=== PATIENT | female | born 1980 | race Caucasian/White ===

== ENCOUNTER 2022-09-19 12:29 | Emergency (ER) | payer MEDICAID ==
[~2022-09-19] VITALS: Ht 157.5 cm; Wt 77.0 kg
[2022-09-19 14:23] VITALS: BP 107/64
[2022-09-19] MEDS ORDERED: SUMA50TA2 PO (15:40)
== END 2022-09-19 15:44 | disposition home or self-care (01) ==
LOC: ER 12:29
DX: G44.209 Tension-type headache, unspecified, not intractable (principal); Z90.710 Acquired absence of both cervix and uterus
CPT/HCPCS: 70450

== ENCOUNTER 2023-01-11 23:37 | Emergency (ER) | payer MEDICAID ==
[~2023-01-11] VITALS: Ht 157.5 cm; Wt 80.0 kg
[~2023-01-11 23:37] MED LIST: SUMA50TA2 PO
[2023-01-12 00:15] VITALS: PULSE 88; RESP 18; O2SAT 99
[2023-01-12 01:05] LABS: Basophils # (auto) 0.1 10 ^3/uL (0-0.2); Basophils % (auto) 0.7 % (0.0-2.0); Eosinophils # (auto) 0.1 10 ^3/uL (0-0.8); Eosinophils % (auto) 1.4 % (0.0-7.0); Hematocrit 38.7 % (36.0-46.0); Lymphocytes # (auto) 2.6 10 ^3/uL (0.4-5.4); Lymphocytes % (auto) 28.7 % (10.0-50.0); Mean Corpuscular Hemoglobin 30.1 pg (28.0-32.0); Mean Corpuscular Hgb Conc. 33.7 g/dL (32.0-36.0); Mean Corpuscular Volume 89.3 fL (80.0-100.0); Monocytes # (auto) 0.9 10 ^3/uL (0-1.3); Monocytes % (auto) 9.5 % (0.0-12.0); Neutrophils # (auto) 5.4 10 ^3/uL (1.6-8.6); Neutrophils % (auto) 59.7 % (37.0-80.0); Red Blood Cells 4.33 10^6/uL (4.0-5.20)
[2023-01-12 01:29] LABS: Albumin 3.7 g/dL (3.4-5.0); BUN/Creatinine Ratio 12.2 (10.0-20.0); Calcium 8.7 mg/dL (8.5-10.1)
[2023-01-12 01:31] LABS: Bilirubin, Total 0.2 mg/dL (0.2-1.0); Total Protein 6.9 g/dL (6.4-8.2)
[2023-01-12 01:34] LABS: Potassium 2.9 mmol/L (3.5-5.1)
[2023-01-12] MEDS ORDERED: KETOROLAC TROMETH 30 MG/ML 1ML VIAL IV ONE (01:45)
[2023-01-12] MEDS ORDERED: MORPHINE SULFATE 4 MG/ML SYR/VIAL IV ONE (01:45)
[2023-01-12] MEDS ORDERED: ONDANSETRON HCL 4 MG/2 ML VIAL IV ONE (01:45)
[2023-01-12 02:09] LABS: INR 0.96 (0.9-1.15); Partial Thromboplastin Time 27.4 SEC (24.5-34.5)
[2023-01-12 04:00] VITALS: BP 108/60; PULSE 86; RESP 19; TEMP 98.3; O2SAT 95
[2023-01-12] MEDS ORDERED: POTASSIUM EFFERVESENT TAB 25 MEQ GT ONE (04:00)
[2023-01-12] MEDS ORDERED: LACTATED RINGER'S 1,000 ML IV ONE (04:45)
== END 2023-01-12 06:40 | disposition home or self-care (01) ==
LOC: EDBD 23:37 → ER 23:37
DX: S06.0XAA Concussion with loss of consciousness status unknown, initial encounter (principal); R51.9 Headache, unspecified; E87.6 Hypokalemia; E86.0 Dehydration; F41.9 Anxiety disorder, unspecified; F32.9 Major depressive disorder, single episode, unspecified; Z90.710 Acquired absence of both cervix and uterus; W18.09XA Striking against other object with subsequent fall, initial encounter; Y93.89 Activity, other specified; Y92.89 Other specified places as the place of occurrence of the external cause; Y99.8 Other external cause status
CPT/HCPCS: 36415; 70450; 72125; 80053; 85025; 85610; 85730; 96361; 96374; 96375; 99285; J1885; J2270; J2405; J7030

== ENCOUNTER 2023-04-16 09:33 | Emergency (ER) | payer MEDICAID ==
[~2023-04-16] VITALS: Ht 157.5 cm; Wt 69.7 kg
[~2023-04-16 09:33] MED LIST changes: +ACET-1881 PO; +LEVO500T91 PO; +ONDA-144 PO; +PERCOT PO; +TAMS-35 PO
[2023-04-16 10:32] LABS: Basophils # (auto) 0 10 ^3/uL (0-0.2); Basophils % (auto) 0.5 % (0.0-2.0); Eosinophils # (auto) 0 10 ^3/uL (0-0.8); Eosinophils % (auto) 0.2 % (0.0-7.0); Hematocrit 40.9 % (36.0-46.0); Hemoglobin 13.6 g/dL (12.2-16.2); Lymphocytes # (auto) 1.8 10 ^3/uL (0.4-5.4); Lymphocytes % (auto) 24.3 % (10.0-50.0); Mean Corpuscular Hemoglobin 30.1 pg (28.0-32.0); Mean Corpuscular Hgb Conc. 33.2 g/dL (32.0-36.0); Mean Corpuscular Volume 90.7 fL (80.0-100.0); Monocytes # (auto) 0.5 10 ^3/uL (0-1.3); Red Cell Distribution Width 13.1 % (11.8-14.3); White Blood Cell 7.4 10^3/uL (4.4-10.8)
[2023-04-16 10:44] LABS: Alanine Aminotransferase 11 U/L (7-40); Albumin 4.7 g/dL (3.2-4.8); Alkaline Phosphatase 87 U/L (46-116); Anion Gap 5 (5-15); Aspartate Aminotransferase 11 U/L (13-40); BUN/Creatinine Ratio 12.6 (10.0-20.0); Bilirubin, Total 0.7 mg/dL (0.2-1.0); Blood Urea Nitrogen 11 mg/dL (9-23); Calcium 9.2 mg/dL (8.7-10.4); Carbon Dioxide 25 mmol/L (20-30); Chloride 107 mmol/L (98-107); Glucose 87 mg/dL (74-106); Potassium 3.9 mmol/L (3.5-5.1); Sodium 137 mmol/L (136-145); Total Protein 7.4 g/dL (5.7-8.2)
[2023-04-16 10:56] LABS: Urine Bacteria NONE SEEN /hpf (None Seen); Urine Blood 1+ /uL (Negative); Urine Clarity Clear (Clear); Urine Color Yellow (Yellow); Urine Mucus FEW (None Seen); Urine Protein, UAD Negative (Negative); Urine Specific Gravity 1.025 (1.001-1.035); Urine Urobilinogen Normal (Negative); Urine WBC 1 /hpf (0 - 5); Urine pH 5.5 (5.0-8.0)
[2023-04-16] MEDS ORDERED: IBU600T PO (13:08)
[2023-04-16] MEDS ORDERED: BACDST PO (13:08)
[2023-04-16] MEDS ORDERED: SODIUM CHLORIDE 0.9% 1,000 ML IV ONE (13:15)
[2023-04-16] MEDS ORDERED: KETOROLAC TROMETH 30 MG/ML 1ML VIAL IV ONE (13:15)
[2023-04-16] MEDS ORDERED: TAMSULOSIN HYDROCHLORIDE 0.4 MG CAP PO ONE (13:15)
[2023-04-16 15:53] VITALS: BP 118/62; PULSE 66; RESP 18; TEMP 98.6; O2SAT 95
== END 2023-04-16 15:53 | disposition home or self-care (01) ==
LOC: ER 09:33
DX: N20.0 Calculus of kidney (principal); Z90.710 Acquired absence of both cervix and uterus; Z79.2 Long term (current) use of antibiotics; Z79.899 Other long term (current) drug therapy; Z88.0 Allergy status to penicillin
CPT/HCPCS: 36415; 74176; 80053; 81001; 83690; 85025; 96361; 96374; 99285; J1885; J7030

== ENCOUNTER 2024-02-19 15:34 | Emergency (ER) | payer MEDICAID ==
[~2024-02-19] VITALS: Ht 157.5 cm; Wt 75.0 kg
[~2024-02-19 15:34] MED LIST changes: +BACDST PO; +IBU600T PO
[2024-02-19 16:06] LABS: Basophils # (auto) 0 10 ^3/uL (0-0.2); Basophils % (auto) 0.4 % (0.0-2.0); Eosinophils # (auto) 0.1 10 ^3/uL (0-0.8); Eosinophils % (auto) 0.9 % (0.0-7.0); Hematocrit 40.6 % (36.0-46.0); Hemoglobin 13.8 g/dL (12.2-16.2); Lymphocytes # (auto) 2.6 10 ^3/uL (0.4-5.4); Mean Corpuscular Hemoglobin 30.4 pg (28.0-32.0); Mean Corpuscular Volume 89.5 fL (80.0-100.0); Monocytes # (auto) 0.8 10 ^3/uL (0-1.3); Monocytes % (auto) 7.6 % (0.0-12.0); Neutrophils % (auto) 66.1 % (37.0-80.0); Platelet Count (auto) 346 10^3/uL (140-450); Red Blood Cells 4.54 10^6/uL (4.0-5.20); White Blood Cell 10.6 10^3/uL (4.4-10.8)
[2024-02-19 16:25] LABS: Alanine Aminotransferase 28 U/L (7-40); Albumin 4.5 g/dL (3.2-4.8); Alkaline Phosphatase 113 U/L (46-116); Anion Gap 6 (5-15); Aspartate Aminotransferase 16 U/L (13-40); BUN/Creatinine Ratio 8.5 (10.0-20.0); Bilirubin, Total 0.4 mg/dL (0.2-1.0); Blood Urea Nitrogen 8 mg/dL (9-23); Calcium 9.6 mg/dL (8.7-10.4); Carbon Dioxide 27 mmol/L (20-30); Chloride 105 mmol/L (98-107); Glucose 89 mg/dL (74-106); Potassium 4.2 mmol/L (3.5-5.1); Sodium 138 mmol/L (136-145); Total Protein 6.9 g/dL (5.7-8.2)
[2024-02-19] MEDS: MAALOX PLUS or MAALOX 30 ML PO ONE (22:02)
[2024-02-19] MEDS: KETOROLAC TROMETH 30 MG/ML 1ML VIAL IM ONE (22:02)
[2024-02-19 22:06] VITALS: BP 104/70; PULSE 87; RESP 17; TEMP 98.3; O2SAT 96
== END 2024-02-19 22:17 | disposition home or self-care (01) ==
LOC: ER 15:34
DX: R07.89 Other chest pain (principal); R51.9 Headache, unspecified; F41.9 Anxiety disorder, unspecified; F32.9 Major depressive disorder, single episode, unspecified; Z90.710 Acquired absence of both cervix and uterus; Z88.0 Allergy status to penicillin; Z79.899 Other long term (current) drug therapy
CPT/HCPCS: 36415; 71046; 80053; 84484; 85025; 93005; 96372; 99285; J1885

== ENCOUNTER 2024-05-24 20:39 | Emergency (ER) | payer MEDICAID ==
[~2024-05-24] VITALS: Ht 157.5 cm; Wt 78.7 kg
[2024-05-24 20:50] VITALS: BP 160/64; PULSE 93; RESP 17; O2SAT 98
== END 2024-05-24 23:20 | disposition left against medical advice (07) ==
LOC: ER 20:39
DX: S01.112A Laceration without foreign body of left eyelid and periocular area, initial encounter (principal); Z53.21 Procedure and treatment not carried out due to patient leaving prior to being seen by health care provider; W26.8XXA Contact with other sharp object(s), not elsewhere classified, initial encounter; Y93.89 Activity, other specified; Y92.89 Other specified places as the place of occurrence of the external cause; Y99.8 Other external cause status

== ENCOUNTER 2025-06-09 15:26 | Inpatient (IN) | payer MEDICAID ==
[~2025-06-09] VITALS: Ht 157.5 cm; Wt 91.7 kg
--- NOTE | 2025-06-09 15:54 | ED.PDOC ---
General HPI Comments 44 y/o F, with PMHx of kidney stones presents to the ED for CC of flank pain. Patient states, she has been experiencing left-sided flank pain with associated urinary frequency x3days. Patient reports, to have experienced similar symptoms in the past with Dx: nephrolithiasis with hydronephrosis. Upon arrival to the ED, patient is febrile with a temperature of 102.9F and tachycardic with a HR of 140bpm. Patient endorses taking Motrin this morning (06/09/25) with no relief of symptoms. Patient denies nausea, vomiting, sweats, hematuria, or vaginal discharge. Chief Complaint: Flank Pain Time Seen by MD: 15:50 Primary Care Provider: Julito Reviewed notes: Nurses Notes, Medications, Allergies Allergies: Coded Allergies: Penicillins (Verified Allergy, Severe, 04/11/23) Home Meds Active Scripts Sulfamethoxazole W/Trimethopri (Bactrim Ds Tablet) 1 Tab Tb, 1 TAB PO BID for 5 Days, #10 TAB Prov:SARIKA NARVAEZ MD 04/16/23 Ibuprofen Micronized (MOTRIN TABLET) 600 Mg Tb, 600 MG PO TID PRN for 5 Days, #15 TAB *Black box warning-NSAIDS can increase risk of ND & hypertension, GI irritation, ulceration, bleed, perferation. Do not use post cardiac surgery. Use short duration/lowest effective dose. Prov:SARIKA NARVAEZ MD 04/16/23 Sumatriptan Succinate (Imitrex) 50 Mg Tab, 1 TAB PO UD, #20 TAB Prov:DAGOBERTO BRASWELL 09/19/22 Acetaminophen (Acetaminophen) 325 Mg Tab, 650 MG PO Q6HP PRN MDD mild pain 1-3, #24 TAB Prov:ETTA ROBLES MD 03/15/20 Oxycodone W/ Acetaminophen (Percocet 5/325MG) 1 Tab Tb, 1 TAB PO Q6HPRN PRN MDD mod-severe pain (4-10), #12 TAB Prov:ETTA ROBLES MD 03/15/20 Ondansetron (Zofran) 4 Mg Tab, 4 MG PO Q6HPRN PRN, #20 TAB Prov:ETTA ROBLES MD 9/30/20 Levofloxacin Hemihydrate (LEVOFLOXACIN) 500 Mg Tab, 500 MG PO DAILY, #10 Prov:ETTA ROBLES MD 02/25/19 Tamsulosin Hcl (Flomax) 0.4 Mg Cap, 0.4 MG PO QPM, #30 CAP Prov:ETTA ROBLES MD 02/25/19 Information Source: Patient Mode of Arrival: Ambulatory Severity: Moderate Timing: Days Duration: Since onset Prehospital treatment: Other (Motrin) Onset: Spontaneous History of: Kidney stone Location: (L)Flank Modifying factors: None associated signs and symptoms: Nausea, Vomiting, Flank Pain Past Medical History PAST MEDICAL HISTORY: Anxiety, Depression, Kidney Stones Surgical History: Hysterectomy [employer] History: Denies all [employer]GER [employer] Hx Family History Family History: Reviewed,noncontributory to illness Social History Smoker: Non-Smoker Alcohol: Denies ETOH Use Drugs: Denies Drug Use Lives In: Home Constitutional: denies: chills, diaphoresis, fatigue, fever, malaise, sweats, weakness, others EENTM: denies: blurred vision, double vision, ear bleeding, ear discharge, ear drainage, ear pain, ear ringing, eye pain, eye redness, hearing loss, mouth pain, mouth swelling, nasal discharge, nose bleeding, nose congestion, nose pain, photophobia, tearing, throat pain, throat swelling, voice changes, others Respiratory: denies: cough, hemoptysis, orthopnea, SOB at rest, shortness of breath, SOB with excertion, stridor, wheezing, others Cardiovascular: denies: chest pain, dizzy spells, diaphoresis, Dyspnea on exertion, edema, irregular heart beat, left arm pain, lightheadedness, palpitations, PND, syncope, others Gastrointestinal: reports: nausea, vomiting; denies: abdomen distended, abdominal pain, blood streaked bowels, constipated, diarrhea, dysphagia, difficulty swallowing, hematemesis, melena, poor appetite, poor fluid intake, rectal bleeding, rectal pain, others Genitourinary: reports: flank pain; denies: abnormal vagina bleeding, burning, dyspareunia, dysuria, frequency, hematuria, incontinence, pain, , vagina discharge, urgency, others Neurological: denies: dizziness, fainting, headache, left sided numbness, left sided weakness, numbness, paresthesia, pre-existing deficit, right sided numbness, right sided weakness, seizure, speech problems, tingling, tremors, weakness, others Musculoskeletal: denies: back pain, gout, joint pain, joint swelling, muscle pain, muscle stiffness, neck pain, others Integumetry: denies: bruises, change in color, change in hair/nails, dryness, laceration, lesions, lumps, rash, wounds, others Allergic/Immunocompromised: denies: Difficulty Healing, Frequent Infections, Hives, Itching, others Hematologic/Lymphatic: denies: anemia, blood clots, easy bleeding, easy bruising, swollen glands, others Endocrine: denies: excessive hunger, excessive sweating, excessive thirst, excessive urination, flushing, intolerance to cold, intolerance to heat, unexplained weight gain, unexplained weight loss, others Psychiatric: denies: anxiety, bipolar disorder, depression, hopeless, panic disorder, schizophrenia, sleepless, suicidal, others All Other Systems: Reviewed and Negative Physical Exam General Appearance: Moderate Distress HEENT: Normal ENT Inspection, Pharynx Normal, TMs Normal Neck: Full Range of Motion, Non-Tender, Normal, Normal Inspection Respiratory: Chest Non-Tender, Lungs Clear, No Accessory Muscle Use, No Resp iratory Distress, Normal Breath Sounds Cardiovascular: No Edema, No JVD, No Murmur, No Gallop, Normal Peripheral Pulses, Tachycardia Breast Exam: Deferred Gastrointestinal: No Organomegaly, Non Tender, No Pulsatile Mass, Normal Bowel Sounds, Soft Genitalia: Deferred Pelvic: Deferred Rectal: Deferred Extremities: No calf tenderness, Normal capillary refill, Normal inspection, Normal range of motion, Non-tender, No pedal edema Musculoskeletal : Apperance: Normal Neurologic: Alert, senior ui ux designer II-XII nml as Tested, No Motor Deficits, Normal Affect, Normal Mood, No Sensory Deficits Cerebellar Function: Normal Reflexes: Normal Skin: Dry, Normal Color, Warm Peripheral Pulses: 3+ Radial (R), 3+ Radial (L) Lymphatic: No Adenopathy Was a procedure done? Was a procedure done?: No Differential Diagnosis Kidney stone (Female): Pyelonephritis, Urinary obstruction, Urolithiasis Urinary Problem (Female): UTI X-Ray, Labs, Meds, VS Vital Signs Date Time Temp Pulse Resp B/P (MAP) Pulse Ox O2 Delivery O2 Flow Rate FiO2 12/25/25 16:42 100.6 06/09/25 15:30 102.9 140 22 121/69 97 102.9 Lab Test 06/09/25 15:50 06/09/25 15:43 Range/Units Urine Color Pending Urine Clarity Pending Urine pH Pending Urine Specific Foss Pending Urine Protein Pending Urine Ketones Pending Urine Blood Pending Urine Nitrite Pending Urine Bilirubin Pending Urine Urobilinogen Pending Urine Leukocyte Esterase Pending Urine RBC Pending Urine Microscopic WBC Pending Urine Squamous Epithelial Cells Pending Urine Bacteria Pending Urine Glucose Pending White Blood Count 20.7 H 4.4-10.8 10^3/uL Red Blood Count 4.48 4.0-5.20 10^6/uL Hemoglobin 13.2 12.2-16.2 g/dL Hematocrit 38.8 36.0-46.0 % Mean Corpuscular Volume 86.7 80.0-100.0 fL Mean Corpuscular Hemoglobin 29.4 28.0-32.0 pg Mean Corpuscular Hemoglobin Concent 33.9 32.0-36.0 g/dL Red Cell Distribution Width 13.7 11.8-14.3 % Platelet Count 318 140-450 10^3/uL Mean Platelet Volume 7.0 6.9-10.8 fL Neutrophils (%) (Auto) 92.0 H 37.0-80.0 % Lymphocytes (%) (Auto) 2.8 L 10.0-50.0 % Monocytes (%) (Auto) 5.0 0.0-12.0 % Eosinophils (%) (Auto) 0.0 0.0-7.0 % Basophils (%) (Auto) 0.2 0.0-2.0 % Neutrophils # (Auto) 19.0 H 1.6-8.6 10 ^3/uL Lymphocytes # (Auto) 0.6 0.4-5.4 10 ^3/uL Monocytes # (Auto) 1.0 0-1.3 10 ^3/uL Eosinophils # (Auto) 0 0-0.8 10 ^3/uL Basophils # (Auto) 0 0-0.2 10 ^3/uL Nucleated Red Blood Cells 0.0 % Sodium Level 138 136-145 mmol/L Potassium Level 3.4 L 3.5-5.1 mmol/L Chloride Level 105 98-107 mmol/L Carbon Dioxide Level 21 20-31 mmol/L Anion Gap 12 5-15 Blood Urea Nitrogen 8 L 9-23 mg/dL Creatinine 0.84 0.550-1.02 mg/dL Glomerular Filtration Rate Calc 88 >90 mL/min BUN/Creatinine Ratio 9.5 L 10.0-20.0 Serum Glucose 128 H 74-106 mg/dL Lactic Acid Level 2.0 0.4-2.0 mmol/L Calcium Level 9.2 8.7-10.4 mg/dL Total Bilirubin 1.5 H 0.2-1.0 mg/dL Aspartate Amino Transferase (AST) 24 13-40 U/L Alanine Aminotransferase (ALT) 26 7-40 U/L Alkaline Phosphatase 120 H 46-116 U/L Total Protein 7.0 5.7-8.2 g/dL Albumin 4.3 3.2-4.8 g/dL Current Medications Medications (Trade) Dose Ordered Sig/Onur Route Start Time Stop Time Status Last Admin Clindamycin Phosphate 50 ml @ 50 mls/hr ONCE ONCE IV 06/09/25 16:00 06/09/25 16:59 06/09/25 16:43 Acetaminophen (Tylenol Tablet) 650 mg ONCE ONCE PO 06/09/25 16:15 06/09/25 16:16 DC 06/09/25 16:42 Patient alert. Came in because of flank pain. Vitals stable. Answering questions. Establish intravenous access. Was given fluids. Was given Toradol. Possible sepsis. Was given Bactrim. Was given clindamycin. Continue to monitor. [place] [id number] Ph: [phone] DIAGNOSTIC IMAGING Diagnostic Imaging Report : [id number] Signed PATIENT: ALLI ALBRIGHT NACCT: [id number] UNIT: [id number] : 1980 LOC: ER ROOM / BED: / AGE / SEX: 44 / F ADM STATUS: REG ER SERVICE 1600 ORDERING PHYSICIAN: SARIKA NARVAEZ MD PROCEDURE(s): ABPL - CT AB PEL WO CON-NO ORAL OR IV REASON: stone ORDER NUMBER(s): [id number], ACCESSION NUMBER(s): [id number] CLINICAL HISTORY: stone TECHNIQUE: CT of the abdomen and pelvis was performed without intravenous contrast. This exam was performed according to our departmental dose op timization program. Up-to-date CT equipment and radiation dose reduction techniques are utilized as appropriate. WID: COMPARISON: CT CT AB PEL WO CON-NO ORAL OR IV on DOS: 04/16/23 FINDINGS: Lung bases: Unremarkable. Liver: Unremarkable. Gallbladder and bile ducts: Unremarkable. Spleen: Unremarkable. Pancreas: Unremarkable. Adrenals: Unremarkable. Kidneys and ureters: Punctate right inferior pole renal stone without obstruction. There is mild left hydronephrosis with associated left perinephric and periureteral inflammatory change secondary to a 4 mm left UVJ stone. Bowel: Unremarkable. Fatty infiltration of the terminal ileum and ascending colon. The appendix is normal. Bladder: Unremarkable. Reproductive organs: Unremarkable. Lymph nodes: Unremarkable. Vessels: Unremarkable. Abdominal wall: Unremarkable. Bones: Mild degenerative changes within the thoracolumbar spine.. Other: Unremarkable. IMPRESSION: 4 mm left UVJ stone resulting in mild hydronephrosis and surrounding left perinephric inflammatory change. Nonobstructing punctate right proximal ureteral stone ATED BY: SAMIR PUENTE MD DICTATED DATE/TIME: 06/09/251641 SIGNED BY: SAMIR PUENTE MD SIGNED DATE/TIME: 06/09/251641 CC: Time of 1ST Reevaluation: 16:10 Reevaluation 1ST: Unchanged Patient Education/Counseling: Diagnosis, Treatment Family Education/Counseling: No Family Present SEPSIS Sepsis Screen Date sepsis recognized/suspect: Jun 09, 2025 Time Sepsis recognized/suspect: 1532 Recent Procedure: No On Antibiotic Therapy: No Respiratory Rate >20: Yes Heart Rate >90: Yes Temp<36 C (96.8 F) or >38.3 C: Yes SBP <90 or MAP <65 mmHG: No New Acute Mental Status Change: No Is the patient on CPAP, BIPAP,: No Physician Orders Blood Culture (06/09/25 15:34) Urinalysis (06/09/25 15:34) Ct Ab Pel Wo Con-No Oral Or Iv (06/09/25 16:00) Sulfameth-Trimeth 80/16mg-Ml (Bactrim) (06/09/25 16:00) Clindamycin 600mg Iv (Cleocin Iv) (06/09/25 16:00) Sodium Chloride 0.9% (06/09/25 16:00) Sodium Chloride 0.9% (06/09/25 16:00) Vital Signs Date Time Temp Pulse Resp B/P (MAP) Pulse Ox O2 Delivery O2 Flow Rate FiO2 06/09/25 16:42 100.6 06/09/25 15:30 102.9 140 22 121/69 97 102.9 Laboratory Tests Test 06/09/25 15:43 Lactic Acid Level 2.0 mmol/L (0.4-2.0) White Blood Count 20.7 10^3/uL (4.4-10.8) H Medications Medications Dose Ordered Sig/Onur Route Start Time Stop Time Status Last Admin Dose Admin Acetaminophen 650 mg ONCE ONCE PO 06/09/25 16:15 06/09/25 16:16 DC 06/09/25 16:42 Clindamycin Phosphate 50 ml @ 50 mls/hr ONCE ONCE IV 06/09/25 16:00 06/09/25 16:59 06/09/25 16:43 Departure 1 Departure Time of Disposition: 16:13 Impression: Primary Impression: Sepsis, unspecified organism Qualified Codes: A41.9 - Sepsis, unspecified organism Disposition: ADMITTED INPATIENT Admit to: Med Surg Condition: Guarded Critical Care Note Critical Care Time?: Yes (90 min-critical care time only) Stability Stability form required: No Heart Score Heart Score: Heart Score Response (Comments) Value History N/A 0 EKG N/A 0 Age N/A 0 Risk Factors N/A 0 Troponin N/A 0 Total 0 I personally scribed for SARIKA NARVAEZ MD ([email or web address]) on 06/09/25 at 15:54. Electronically submitted by Radha Templeton ([email or web address]). I personally scribed for SARIKA NARVAEZ MD ([email or web address]) on 06/09/25 at 16:00. Electronically submitted by Radha Templeton ([email or web address]). I personally scribed for SARIKA NARVAEZ MD ([email or web address]) on 06/09/25 at 16:04. Electronically submitted by Radha Templeton ([email or web address]). I personally scribed for SARIKA NARVAEZ MD ([email or web address]) on 06/09/25 at 16:50. Electronically submitted by Radha Templeton ([email or web address]). SARIKA NARVAEZ MD Jun 09, 2025 15:54
[2025-06-09 16:15] LABS: Hematocrit 38.8 % (36.0-46.0); Hemoglobin 13.2 g/dL (12.2-16.2); Mean Corpuscular Hemoglobin 29.4 pg (28.0-32.0); Mean Corpuscular Volume 86.7 fL (80.0-100.0); Nucleated Red Blood Cells % 0.0 %
[2025-06-09 16:28] LABS: Alanine Aminotransferase 26 U/L (7-40); Albumin 4.3 g/dL (3.2-4.8); Anion Gap 12 (5-15); BUN/Creatinine Ratio 9.5 (10.0-20.0); Calcium 9.2 mg/dL (8.7-10.4); Carbon Dioxide 21 mmol/L (20-31); Chloride 105 mmol/L (98-107); Sodium 138 mmol/L (136-145); Total Protein 7.0 g/dL (5.7-8.2)
[2025-06-09 16:29] LABS: Alkaline Phosphatase 120 U/L (46-116); Bilirubin, Total 1.5 mg/dL (0.2-1.0); Blood Urea Nitrogen 8 mg/dL (9-23); Glucose 128 mg/dL (74-106); Potassium 3.4 mmol/L (3.5-5.1)
[2025-06-09] MEDS: SODIUM CHLORIDE 0.9% 1,000 ML IV ONE ×3 (16:42→19:20)
[2025-06-09] MEDS: ACETAMINOPHEN 325 MG TAB PO ONE (16:42)
--- NOTE | 2025-06-09 16:42 | DVH ---
CLINICAL HISTORY: stone TECHNIQUE: CT of the abdomen and pelvis was performed without intravenous contrast. This exam was performed according to our departmental dose optimization program. Up-to-date CT equipment and radiation dose reduction techniques are utilized as appropriate. WID: COMPARISON: CT CT AB PEL WO CON-NO ORAL OR IV on DOS: 04/16/23 FINDINGS: Lung bases: Unremarkable. Liver: Unremarkable. Gallbladder and bile ducts: Unremarkable. Spleen: Unremarkable. Pancreas: Unremarkable. Adrenals: Unremarkable. Kidneys and ureters: Punctate right inferior pole renal stone without obstruction. There is mild left hydronephrosis with associated left perinephric and periureteral inflammatory change secondary to a 4 mm left UVJ stone. Bowel: Unremarkable. Fatty infiltration of the terminal ileum and ascending colon. The appendix is normal. Bladder: Unremarkable. Reproductive organs: Unremarkable. Lymph nodes: Unremarkable. Vessels: Unremarkable. Abdominal wall: Unremarkable. Bones: Mild degenerative changes within the thoracolumbar spine.. Other: Unremarkable. IMPRESSION: 4 mm left UVJ stone resulting in mild hydronephrosis and surrounding left perinephric inflammatory change. Nonobstructing punctate right proximal ureteral stone
[2025-06-09] MEDS: CLINDAMYCIN 600MG IV 50 ML IV ONE (16:43)
[2025-06-09 16:51] LABS: Urine Protein, UAD 1+ (Negative)
[2025-06-09] MEDS: KETOROLAC TROMETH 30 MG/ML 1ML VIAL IV ONE (18:12)
[2025-06-09] MEDS: SULFAMETH-TRIMETH 80/16MG-ML 15 ML in D5W 5% 500 ML IV ONE (18:54)
[2025-06-09 22:18] VITALS: RESP 25; O2SAT 99
[2025-06-09] MEDS: ONDANSETRON HCL 4 MG/2 ML VIAL IV ONE (22:48)
[2025-06-09] MEDS: MORPHINE SULFATE INJ 2 MG/ml SYRG IV ONE (22:59)
[2025-06-09] MEDS: MORPHINE SULFATE 4 MG/ML SYR/VIAL ONE (23:00)
[2025-06-09] MEDS ORDERED: ONDANSETRON HCL 4 MG/2 ML VIAL IV PRN (23:30)
[2025-06-09] MEDS: PANTOPRAZOLE 40 MG/10 ML VIAL INJ IV ONE (23:41)
[2025-06-09] MEDS: POTASSIUM EFFERVESENT TAB 25 MEQ PO ONE (23:43)
[2025-06-09] MEDS: ACETAMINOPHEN 325 MG TAB PO SCH (23:44)
[2025-06-09] MEDS: TAMSULOSIN HYDROCHLORIDE 0.4 MG CAP PO ONE (23:44)
[2025-06-09 23:47] LABS: Opiate Scree,Urine Neg (NEGATIVE)
--- NOTE | 2025-06-09 23:59 | DVHHPRES ---
History of Present Illness Resident Creating Document: SIENNA TANG RESIDENT History of Present Illness Nahomi Desouza is a 44-year-old female with past medical history of anxiety, depression, ovarian tumor presented to the hospital with complaints of left flank pain and vomiting since 3 days. She also complains of associated fever, chills and acid reflux. She rates the pain 9 on 10 in intensity, squeezing in quality, continuous and nonradiating. She denies any diarrhea, urinary urgency. She reports of having urinary frequency 2 days back, took [id number] medicines after which resolved. She reports that the last time she had ureteric calculi, patient went into septic shock and was admitted in the ICU. WBC was 20, potassium 3.4 and urine studies positive for UTI. CT abdomen revealed signs of pyelonephritis. We are admitting the patient for further management and care. PMHx: anxiety, depression, ovarian tumor PSHx: partial hysterectomy Family history: nonrelevant Social history: denies smoking, alcohol or illicit drug use. Lives in [place] with family Home medication: none Allergic history: penicillin Review of Systems Review of Systems General: complaints of fever and chills HEENT: No headaches, visiual changes, hearing loss, tinnitus, nasal congestion and discharge, and sore throat. Cardiovascular: Denies chest pain, palpitations, dyspnea on exertion, orthopnea, or claudication. Respiratory: No cough, and wheezing. Gastrointestinal: complaints of left flank pain and vomiting Genitourinary: No dysuria, hematuria, discharge, frequency, urgency, nocturia, incontinence, and urinary retention. Endocrine: No heat or cold intolerance, polydipsia, polyuria, and polyphagia. Neurological: No dizziness, extremity weakness and numbness, tremors, gait disturbance, seizures, and memory impairment. Psychiatric: Denies depression, anxiety,or insomnia. Musculoskeletal: Denies neck pain, stiffness and swelling, back pain, muscle weakness, joint pain, stiffness, swelling, or limited range of motion. Skin: No rashes, itching, skin lesion, changes in hair, nail, skin texture and breast. Hematologic/Lymphatic: Denies easy bruising, bleeding tendencies, or lymph node enlargement. Allergies: Coded Allergies: Penicillins (Verified Allergy, Severe, 04/11/23) Medications Current Medications Medications Dose Ordered Sig/Onur Route Start Time Stop Time Status Last Admin Dose Admin Acetaminophen 650 mg Q6HR PO 06/10/25 00:00 06/09/25 23:44 650 MG Ketorolac Tromethamine 15 mg Q6HPRN PRN IV 06/10/25 01:00 06/15/25 00:59 Pantoprazole Sodium 40 mg DAILY IV 06/10/25 10:00 Ondansetron HCl 4 mg Q6HPRN PRN IV 06/09/25 23:30 Tamsulosin HCl 0.4 mg QPM PO 06/10/25 18:00 Exam Vital Signs Vital Signs Date Time Temp Pulse Resp B/P (MAP) Pulse Ox O2 Delivery O2 Flow Rate FiO2 06/09/25 23:55 106 20 103/42 06/09/25 22:18 99 Room Air* 0 21 06/09/25 22:18 98.3 98.3 Exam General Appearance: Alert, Oriented X3, Cooperative, No acute distress HEENT: Atraumatic, PERRLA, EOMI, Mucous membrane moist/pink Respiratory: Clear to auscultation, Normal air movement Cardiovascular: Regular rate, Normal S1, Normal S2, No murmurs, no chest wall tenderness Abdominal: left flank tenderness Extremities: No clubbing, No cyanosis, No edema, Normal pulses, No tenderness/swelling Skin: No rashes, No breakdown, No significant lesion Neuro: Normal gait, Normal speech, Strength at 5/5 X4 ext, Normal tone, Sensation intact, Cranial nerves 3-12 NL, Reflexes 2+ Psych/Mental Status: Mental status NL, Mood NL Labs/Xrays Labs Test 06/09/25 15:50 06/09/25 15:43 Range/Units Urine Color Yellow Yellow Urine Clarity Turbid H Clear Urine pH 6.0 5.0-9.0 Urine Specific [place] 1.020 1.001-1.035 Urine Protein 1+ H Negative Urine Ketones 3+ H Negative Urine Blood 2+ H Negative /uL Urine Nitrite 1+ H Negative Urine Bilirubin Negative Negative Urine Urobilinogen Normal Negative mg/dL Urine Leukocyte Esterase 2+ Negative /uL Urine RBC 99 0 - 4 /hpf Urine Microscopic WBC 74 H 0-5 /HPF Urine Squamous Epithelial Cells Few <5 /hpf Urine Bacteria Few H None Seen /hpf Urine Mucus Few None Seen Urine Glucose Trace Normal mg/dL Urine Test Negative Negative White Blood Count 20.7 H 4.4-10.8 10^3/uL Red Blood Count 4.48 4.0-5.20 10^6/uL Hemoglobin 13.2 12.2-16.2 g/dL Hematocrit 38.8 36.0-46.0 % Mean Corpuscular Volume 86.7 80.0-100.0 fL Mean Corpuscular Hemoglobin 29.4 28.0-32.0 pg Mean Corpuscular Hemoglobin Concent 33.9 32.0-36.0 g/dL Red Cell Distribution Width 13.7 11.8-14.3 % Platelet Count 318 140-450 10^3/uL Mean Platelet Volume 7.0 6.9-10.8 fL Neutrophils (%) (Auto) 92.0 H 37.0-80.0 % Lymphocytes (%) (Auto) 2.8 L 10.0-50.0 % Monocytes (%) (Auto) 5.0 0.0-12.0 % Eosinophils (%) (Auto) 0.0 0.0-7.0 % Basophils (%) (Auto) 0.2 0.0-2.0 % Neutrophils # (Auto) 19.0 H 1.6-8.6 10 ^3/uL Lymphocytes # (Auto) 0.6 0.4-5.4 10 ^3/uL Monocytes # (Auto) 1.0 0-1.3 10 ^3/uL Eosinophils # (Auto) 0 0-0.8 10 ^3/uL Basophils # (Auto) 0 0-0.2 10 ^3/uL Nucleated Red Blood Cells 0.0 % Sodium Level 138 136-145 mmol/L Potassium Level 3.4 L 3.5-5.1 mmol/L Chloride Level 105 98-107 mmol/L Carbon Dioxide Level 21 20-31 mmol/L Anion Gap 12 5-15 Blood Urea Nitrogen 8 L 9-23 mg/dL Creatinine 0.84 0.550-1.02 mg/dL Glomerular Filtration Rate Calc 88 >90 mL/min BUN/Creatinine Ratio 9.5 L 10.0-20.0 Serum Glucose 128 H 74-106 mg/dL Lactic Acid Level 2.0 0.4-2.0 mmol/L Calcium Level 9.2 8.7-10.4 mg/dL Total Bilirubin 1.5 H 0.2-1.0 mg/dL Aspartate Amino Transferase (AST) 24 13-40 U/L Alanine Aminotransferase (ALT) 26 7-40 U/L Alkaline Phosphatase 120 H 46-116 U/L Total Protein 7.0 5.7-8.2 g/dL Albumin 4.3 3.2-4.8 g/dL SEPSIS Sepsis Screen Date sepsis recognized/suspect: Jun 09, 2025 Time Sepsis recognized/suspect: 1531 Recent Procedure: No On Antibiotic Therapy: No Respiratory Rate >20: Yes Heart Rate >90: Yes Temp<36 C (96.8 F) or >38.3 C: Yes SBP <90 or MAP <65 mmHG: No New Acute Mental Status Change: No Is the patient on CPAP, BIPAP,: No Physician Orders Ct Ab Pel Wo Con-No Oral Or Iv (06/09/25 16:00) Admit (06/09/25 22:29) Allergies (06/09/25 22:29) Code Status (06/09/25 22:29) Complete Blood Count (06/10/25 04:00) Comprehensive Metabolic Panel (06/10/25 04:00) Condition: Fair (06/09/25 22:29) Clear Liq Diet (06/10/25 Breakfast) Urine Bacterial Culture (06/09/25 22:33) Acetaminophen Tablet (Tylenol Tablet) (06/10/25 00:00) Ketorolac Injection (Toradol Injection) (06/10/25 01:00) Magnesium (06/09/25 23:15) Drug Screen (06/09/25 23:15) Pantoprazole (Protonix) (06/10/25 10:00) Ondansetron Hcl (Zofran) (06/09/25 23:30) Tamsulosin Hydrochloride (Flomax) (06/10/25 18:00) Vital Signs Date Time Temp Pulse Resp B/P (MAP) Pulse Ox O2 Delivery O2 Flow Rate FiO2 06/09/25 23:55 106 20 103/42 06/09/25 23:02 102 24 103/42 06/09/25 22:18 25 99 Room Air* 0 21 06/09/25 22:18 98.3 100 25 97/59 (72) 99 98.3 06/09/25 18:13 99.2 06/09/25 16:42 100.6 Laboratory Tests Test 06/09/25 15:43 Lactic Acid Level 2.0 mmol/L (0.4-2.0) White Blood Count 20.7 10^3/uL (4.4-10.8) H Medications Medications Dose Ordered Sig/Onur Route Start Time Stop Time Status Last Admin Dose Admin Acetaminophen 650 mg ONCE ONCE PO 06/09/25 16:15 06/09/25 16:16 DC 06/09/25 16:42 650 MG Acetaminophen 650 mg Q6HR PO 06/10/25 00:00 06/09/25 23:44 650 MG Clindamycin Phosphate 50 ml @ 50 mls/hr ONCE ONCE IV 06/09/25 16:00 06/09/25 16:59 NC 06/09/25 16:43 50 MLS/HR Ketorolac Tromethamine 30 mg ONCE ONCE IV 06/09/25 18:00 06/09/25 18:01 NC 06/09/25 18:12 30 MG Morphine Sulfate 2 mg ONCE ONCE IV 06/09/25 22:30 06/09/25 22:31 NC 06/09/25 23:02 2 MG Ondansetron HCl 4 mg ONCE ONCE IV 06/09/25 22:30 06/09/25 22:31 NC 06/09/25 22:48 4 MG Potassium Bicarbonate 25 meq ONCE ONCE PO 06/09/25 23:30 06/09/25 23:31 NC 06/09/25 23:43 25 MEQ Sodium Chloride 1,000 ml @ 1,000 mls/hr Q1H ONCE IV 06/09/25 15:45 06/09/25 16:44 NC 06/09/25 16:42 1,000 MLS/HR Sodium Chloride 1,000 ml @ 1,000 mls/hr Q1H ONCE IV 06/09/25 16:00 06/09/25 16:59 NC 06/09/25 17:47 1,000 MLS/HR Tamsulosin HCl 0.4 mg ONCE ONCE PO 06/09/25 23:30 06/09/25 23:31 NC 06/09/25 23:44 0.4 MG Trimethoprim/ Sulfamethoxazole 15 ml/Dextrose 515 ml @ 171.667 mls/hr ONCE ONCE IV 06/09/25 16:00 06/09/25 18:59 NC 06/09/25 18:54 171.667 MLS/HR Assessment/Plan Assessment/Plan Assessment and plan Acute pyelonephritis Acute complicated UTI Sepsis due to above Left ureteric calculi Hydronephrosis due to above CT abdomen:4 mm left UVJ stone resulting in mild hydronephrosis and surrounding left perinephric inflammatory change. urinalysis Urine culture, blood culture IV Zosyn IV Zofran Flomax Hypokalemia Potassium 3.4 Replenished Anxiety Depression Not on any home medication Follow up with PCP on discharge History of ovarian tumor Status post partial hysterectomy Follow up with PCP on discharge PUD prophylaxis: protonix 40mg DVT prophylaxis: Ambulatory Barriers to discharge: Medical diagnosis and management in progress. Patient lives with family. Independent for ADL. PCP: Dr. Bowens Specialist Relevent To Admission: None Case discussed with Dr. Lomeli. Code Status: Full Code. Complex patient care discussion needed. Spend total 35 minutes for bedside assessment, case discussion and management. Plan discussed with: Patient My Orders Orders - SIENNA TANG Procedure Category Date Status Time Admit ADMIT 06/09/25 Transmitted 22:29 Allergies DIONICIO 06/09/25 In Process 22:29 Code Status CODE 06/09/25 Transmitted 22:29 Complete Blood Count LAB 06/10/25 Verified 04:00 Comprehensive LAB 06/10/25 Verified Metabolic Panel 04:00 Condition: Fair DIONICIO 06/09/25 In Process 22:29 Clear Liq Diet DIET 06/10/25 Transmitted Breakfast Urine Bacterial PEEWEE 06/09/25 In Process Culture 22:33 Acetaminophen Tablet PHA 06/10/25 In Process (Tylenol Tablet) 00:00 Ketorolac Injection PHA 06/10/25 In Process (Toradol Injection) 01:00 Magnesium LAB 06/09/25 In Process 23:15 Drug Screen LAB 06/09/25 In Process 23:15 Pantoprazole PHA 06/10/25 In Process (Protonix) 10:00 Ondansetron Hcl PHA 06/09/25 In Process (Zofran) 23:30 Tamsulosin PHA 06/10/25 In Process Hydrochloride (Flomax) 18:00 Visit Coding STANDARD RES Billing Provider: VIDHYA LOMELI MD Date of Service if different f: Jun 09, 2025 Common Visit Codes: [id number] INP/OBS CARE (HIGH) Secondary Visit Codes: [id number] CARE PLAN 30 MINUTES SIENNA TANG RESIDENT Jun 09, 2025 23:59
[2025-06-10] VITALS (10 sets, daily range): BP systolic 91–113; BP diastolic 46–67; PULSE 83–135; RESP 17–20; TEMP 98.3–101.8; O2SAT 94–99
[2025-06-10 00:12] LABS: Amphetamine Screen, Urine Neg (NEGATIVE); Barbiturate Scree,Urine Neg (NEGATIVE); Benzodiazephine Screen, Urine Neg (NEGATIVE); Cannabinoid Screen, Urine Neg (NEGATIVE); Cocaine Screen, Urine Neg (NEGATIVE); Phencyclidine Screen, Urine Neg (NEGATIVE)
[2025-06-10 07:16] LABS: Hematocrit 37.0 % (36.0-46.0); Hemoglobin 12.4 g/dL (12.2-16.2); Mean Corpuscular Hemoglobin 29.5 pg (28.0-32.0); Mean Corpuscular Volume 88.2 fL (80.0-100.0); Nucleated Red Blood Cells % 0.0 %
[2025-06-10 07:39] LABS: Alanine Aminotransferase 23 U/L (7-40); Albumin 3.9 g/dL (3.2-4.8); Alkaline Phosphatase 113 U/L (46-116); Anion Gap 12 (5-15); BUN/Creatinine Ratio 8.4 (10.0-20.0); Calcium 8.8 mg/dL (8.7-10.4); Carbon Dioxide 23 mmol/L (20-31); Chloride 104 mmol/L (98-107); Glucose 85 mg/dL (74-106); Sodium 139 mmol/L (136-145); Total Protein 6.5 g/dL (5.7-8.2)
[2025-06-10 07:40] LABS: Bilirubin, Total 1.0 mg/dL (0.2-1.0)
[2025-06-10 07:42] LABS: Blood Urea Nitrogen 8 mg/dL (9-23); Potassium 3.3 mmol/L (3.5-5.1)
[2025-06-10] MEDS: MANNITOL FTV 25% 12.5 GM/50 ML 50 ML IV ONE ×2 (08:00→11:21)
[2025-06-10] MEDS: MAGNESIUM SULFATE 1GM/100ML 100 ML IV SCH (09:43)
[2025-06-10] MEDS: SODIUM CHLORIDE 0.9% 1,000 ML IV SCH (11:15)
[2025-06-10] MEDS: PANTOPRAZOLE 40 MG/10 ML VIAL INJ IV SCH (11:18)
[2025-06-10] MEDS ORDERED: PIPERACILLIN-TAZOB 3.375GM 100 ML IV SCH ×2 (14:00)
--- NOTE | 2025-06-10 14:19 | DVHPNRES ---
Progress Note Date Seen: Jun 10, 2025 Resident Creating Document: LEI JENSEN RESIDENT Medical Necessity Reason Pt with a Central, PICC or Fol: No Subjective Review of Systems Ms. Desouza is a 44 year old female with PMHx of Nephrolithiasis, ovarian tumor, depression, and anxiety, who presented to [facility] with chief complaint of left flank pain and vomiting. She refers onset of sharp/pressure- like left flank pain on Friday, nonradiating, 8/10 intensity, constant with intermittent periods of exacerbation, associated with nausea, vomiting, subjective fever, and chills. She denies dysuria, hematuria, chest pain, palpitations, shortness of breath, diarrhea, and generalized weakness. Due to progressive worsening of symptoms, she presented to the emergency department for evaluation. On evaluation in the ED, patient was afebrile, tachycardic, tachypneic, normotensive, saturating adequately on room air. Initial labs are significant for leukocytosis with neutrophilia, hypokalemia, elevated total bilirubin, UA significant for UTI. CT abdomen/pelvis shows a 4 mm left UVJ stone resulting in mild hydronephrosis and surrounding left perinephric inflammatory change. Sepsis protocol was initiated, fluids were started, cultures were taken, and patient was started on IV antibiotics. She was admitted for further workup and management. Prior surgical history: Partial hysterectomy, lumpectomy, bilateral tubal ligation Allergies: Patient states her mother told her she has a penicillin allergy, however the patient states she is unsure as she does not recall ever having penicillin Social: Denies previous drug, alcohol, or tobacco use. She states she lives with her and kids and feels safe. Home meds: None PCP: Dr. Bowens 06/10/2025: Patient seen at bedside. Patient seem ill, refers intermittent chills and diaphoresis. Patient is febrile, tachycardic, normotensive, and saturating adequately on room air. Follow up labs show downtrending leukocytosis and hypokalemia. Zosyn was started for infectious control. Review of Systems: Constitutional: Refers chills, Denies weight loss and fever HEENT: Denies changes in vision and hearing. Respiratory: Denies shortness of breath and cough Cardiovascular: Denies chest discomfort or palpitations GI: Refers left flank pain, denies abdominal distention, diarrhea : Denies dysuria and urinary frequency. Musculoskeletal: denies symptoms Skin: Denies rash and pruritus. Neurological: denies dizziness headache vision or hearing problems Objective vital signs Vital Sign Date Time Temp Pulse Resp B/P (MAP) Pulse Ox O2 Delivery O2 Flow Rate FiO2 06/10/25 13:03 99.1 121 18 103/57 (72) 94 99.1 06/10/25 00:31 Room Air* 0 21 Total Intake and Output 06/09/25 06/09/25 06/10/25 15:00 23:00 07:00 Intake Total 240 ml Balance 240 ml medications Current Medications Medications Dose Ordered Sig/Onur Route Start Time Stop Time Status Last Admin Dose Admin Acetaminophen 650 mg Q6HR PO 06/10/25 00:00 06/10/25 11:15 650 MG Ketorolac Tromethamine 15 mg Q6HPRN PRN IV 06/10/25 01:00 06/15/25 00:59 Pantoprazole Sodium 40 mg DAILY IV 06/10/25 10:00 06/10/25 11:18 40 MG Ondansetron HCl 4 mg Q6HPRN PRN IV 06/09/25 23:30 Tamsulosin HCl 0.4 mg QPM PO 06/10/25 18:00 Sodium Chloride 1,000 ml @ 75 mls/hr [id number] IV 06/10/25 11:15 06/10/25 11:15 75 MLS/HR Piperacillin Sod/ Tazobactam Sod 100 ml @ 25 mls/hr Q8HR IV 06/10/25 14:00 Hold Examination General: Patient is AOx4, follows commands, is ill appearing HEENT: Normocephalic, atraumatic, normal reactive pupils, EOM intact, pink conjunctiva, pink moist mucous membrane Respiratory/pulmonary: Bilateral chest expansion, no pain on palpation of chest wall, clear lungs bilaterally, vesicular murmurs present in almost all lung almanza, no associated crackles or wheezes. Cardiovascular: Normal RRR, normal S1 and S2, no murmurs Abdomen: Abdomen nondistended, normal bowel sounds, soft, tenderness to palpation and percussion of left flank, no palpable masses. Extremities: No deformities, there is no peripheral edema present at the lower extremities, normal pulses Skin: No rashes or pruritus, presence of multiple pink patches on lateral surface of right calf which the patient states are a fernandez, there is no sacral edema present at this time. Neurological: Intact cranial nerves with no focal neurologic deficits laboratory and microbiology Laboratory Tests 06/10/25 04:47 Test 06/10/25 04:47 Range/Units Serum Glucose 85 74-106 mg/dL Problem List/Assessment/Plan Problem List/Assessment/Plan Assessment and Plan: Sepsis secondary to Pyelonephritis secondary to ureterolithiasis Left hydronephrosis - CT abdomen/pelvis: 4 mm left UVJ stone resulting in mild hydronephrosis and surrounding left perinephric inflammatory change. - Bactrim, once - Clindamycin, once - Zosyn 3.375 gm IV q 8 hours - NS 3000 cc IV - NS 75 cc/hr IV maintenance - Urine culture pending - Blood culture pending - Flomax 0.4 mg PO qAM - Toradol 15 mg IV q 6 hours - Acetaminophen 625 mg PO q 6 hours PO Hypokalemia - Monitor potassium levels - Replace as needed Morbid obesity, BMI 36.3 kg/m2 - I have counseled the patient on healthy lifestyle modifications for 15 minutes. History of Ovarian tumor, s/p partial hysterectomy Depression and Anxiety Nutrition: Regular DVT prophylaxis: Lovenox 40 mg Sc GI prophylaxis: Protonix 40 mg IV daily Goals of care discussed with the patient for 31 minutes. FULL CODE Case discussed with Dr. Lomeli Plan discussed with: Patient, Other (Nurse) Visit Coding STANDARD RES Billing Provider: VIDHYA LMOELI MD Date of Service if different f: Jun 10, 2025 Common Visit Codes: [id number] INP/OBS CARE(HIGH) LEI JENSEN RESIDENT Jun 10, 2025 14:19 VIDHYA LOMELI MD Jun 15, 2025 13:51
[2025-06-10] MEDS: KETOROLAC TROMETH 30 MG/ML 1ML VIAL IV PRN (17:07)
[2025-06-10] MEDS: ENOXAPARIN SOD 40 MG/0.4 ML SYRINGE SC ONE (17:10)
[2025-06-10] MEDS: TAMSULOSIN HYDROCHLORIDE 0.4 MG CAP PO SCH (17:10)
[2025-06-10] MEDS: CEFEPIME 1GM/50ML 50 ML IV ONE (17:10)
[2025-06-11] VITALS (8 sets, daily range): BP systolic 93–107; BP diastolic 50–71; PULSE 78–113; RESP 17–21; TEMP 97.6–101; O2SAT 96–98
[2025-06-11] MEDS: CEFEPIME 1GM/50ML 50 ML IV SCH (02:41)
[2025-06-11 06:35] LABS: Hematocrit 31.2 % (36.0-46.0); Hemoglobin 10.6 g/dL (12.2-16.2); Mean Corpuscular Hemoglobin 29.5 pg (28.0-32.0); Mean Corpuscular Volume 86.7 fL (80.0-100.0); Nucleated Red Blood Cells % 0.0 %
[2025-06-11 06:37] LABS: Sodium 140 mmol/L (136-145)
[2025-06-11 06:38] LABS: Anion Gap 9 (5-15); Carbon Dioxide 22 mmol/L (20-31)
[2025-06-11 06:41] LABS: Calcium 8.5 mg/dL (8.7-10.4); Chloride 109 mmol/L (98-107); Potassium 3.4 mmol/L (3.5-5.1)
[2025-06-11 06:44] LABS: BUN/Creatinine Ratio 11.0 (10.0-20.0); Glucose 95 mg/dL (74-106)
[2025-06-11 06:49] LABS: Blood Urea Nitrogen 8 mg/dL (9-23)
[2025-06-11] MEDS: POTASSIUM CHL 20 Meq TABLET PO ONE (08:44)
--- NOTE | 2025-06-11 10:36 | DVHPNRES ---
Progress Note Date Seen: Jun 11, 2025 Resident Creating Document: LEI JENSEN RESIDENT Medical Necessity Reason Pt with a Central, PICC or Fol: No Subjective Review of Systems Ms. Desouza is a 44 year old female with PMHx of Nephrolithiasis, ovarian tumor, depression, and anxiety, who presented to [facility] with chief complaint of left flank pain and vomiting. She refers onset of sharp/pressure- like left flank pain on Friday, nonradiating, 8/10 intensity, constant with intermittent periods of exacerbation, associated with nausea, vomiting, subjective fever, and chills. She denies dysuria, hematuria, chest pain, palpitations, shortness of breath, diarrhea, and generalized weakness. Due to progressive worsening of symptoms, she presented to the emergency department for evaluation. On evaluation in the ED, patient was afebrile, tachycardic, tachypneic, normotensive, saturating adequately on room air. Initial labs are significant for leukocytosis with neutrophilia, hypokalemia, elevated total bilirubin, UA significant for UTI. CT abdomen/pelvis shows a 4 mm left UVJ stone resulting in mild hydronephrosis and surrounding left perinephric inflammatory change. Sepsis protocol was initiated, fluids were started, cultures were taken, and patient was started on IV antibiotics. She was admitted for further workup and management. Prior surgical history: Partial hysterectomy, lumpectomy, bilateral tubal ligation Allergies: Patient states her mother told her she has a penicillin allergy, however the patient states she is unsure as she does not recall ever having penicillin Social: Denies previous drug, alcohol, or tobacco use. She states she lives with her and kids and feels safe. Home meds: None PCP: Dr. Bowens 06/11/2025: Patient seen at bedside. She is beginning to feel better, states that overnight she had some periods of chills and sweats. Overnight did have one febrile episode. Additionally, two stones were strained from the patient's urine over night. Patient is currently afebrile, normocardic, normotensive, and saturating adequately on room air. Labs are significant for downtrending WBCs and mild hypokalemia, which was replaced. She is tolerating clear liquid diet, we will advance to soft diet as tolerated. We will continue current management and will continue to monitor. Objective vital signs Vital Sign Date Time Temp Pulse Resp B/P (MAP) Pulse Ox O2 Delivery O2 Flow Rate FiO2 06/11/25 09:00 97.6 78 18 96/66 (76) 98 97.6 06/10/25 20:00 Room Air* 0 21 21 Total Intake and Output 06/10/25 06/10/25 06/11/25 15:00 23:00 07:00 Intake Total 400 ml 975 ml 1100 ml Output Total 400 ml Balance 400 ml 975 ml 700 ml medications Current Medications Medications Dose Ordered Sig/Onur Route Start Time Stop Time Status Last Admin Dose Admin Acetaminophen 650 mg Q6HR PO 06/10/25 00:00 06/11/25 06:02 650 MG Ketorolac Tromethamine 15 mg Q6HPRN PRN IV 06/10/25 01:00 06/15/25 00:59 06/11/25 02:23 15 MG Pantoprazole Sodium 40 mg DAILY IV 06/10/25 10:00 06/11/25 08:44 40 MG Ondansetron HCl 4 mg Q6HPRN PRN IV 06/09/25 23:30 Tamsulosin HCl 0.4 mg QPM PO 06/10/25 18:00 06/10/25 17:10 0.4 MG Sodium Chloride 1,000 ml @ 75 mls/hr [id number] IV 06/10/25 11:15 06/11/25 01:15 75 MLS/HR Cefepime HCl 50 ml @ 12.5 mls/hr Q12H IV 06/11/25 03:00 06/11/25 02:41 12.5 MLS/HR Examination General: Patient is AOx4, follows commands HEENT: Normocephalic, atraumatic, normal reactive pupils, EOM intact, pink conjunctiva, pink moist mucous membrane Respiratory/pulmonary: Bilateral chest expansion, no pain on palpation of chest wall, clear lungs bilaterally, vesicular murmurs present in almost all lung almanza, no associated crackles or wheezes. Cardiovascular: Normal RRR, normal S1 and S2, no murmurs Abdomen: Abdomen nondistended, normal bowel sounds, soft, mild tenderness to palpation and percussion of left flank, no palpable masses. Extremities: No deformities, there is no peripheral edema present at the lower extremities, normal pulses Skin: No rashes or pruritus, presence of multiple pink patches on lateral surface of right calf which the patient states are a fernandez, there is no sacral edema present at this time. Neurological: Intact cranial nerves with no focal neurologic deficits laboratory and microbiology Laboratory Tests 06/11/25 05:47 Test 06/11/25 05:47 Range/Units Serum Glucose 95 74-106 mg/dL Microbiology Date/Time Source Procedure Growth Status 06/09/25 15:50 Voided Urine Urine Culture - Preliminary Resulted 06/09/25 15:46 Blood Blood Culture - Preliminary NO GROWTH AFTER 24 HOURS OF INCUBATION. Resulted Problem List/Assessment/Plan Problem List/Assessment/Plan Assessment and Plan: Sepsis secondary to Pyelonephritis secondary to ureterolithiasis Left hydronephrosis - CT abdomen/pelvis: 4 mm left UVJ stone resulting in mild hydronephrosis and surrounding left perinephric inflammatory change. - Bactrim, once - Clindamycin, once - Cefepime 1g IV q 12 hours - NS 3000 cc IV - NS 75 cc/hr IV maintenance - Urine culture pending - Blood culture pending - Flomax 0.4 mg PO qAM - Toradol 15 mg IV q 6 hours - Acetaminophen 625 mg PO q 6 hours PO Hypokalemia - Monitor potassium levels - Replace as needed Morbid obesity, BMI 36.3 kg/m2 - I have counseled the patient on healthy lifestyle modifications for 15 minutes. History of Ovarian tumor, s/p partial hysterectomy Depression and Anxiety Nutrition: Soft diet DVT prophylaxis: Lovenox 40 mg Sc GI prophylaxis: Protonix 40 mg IV daily Goals of care discussed with the patient for 25 minutes. FULL CODE Case discussed with Dr. Lomeli Plan discussed with: Patient, Other (Nurse) My Orders My Orders Orders - LEI JENSEN RESIDENT Procedure Category Date Status Time Soft Diet DIET 06/11/25 Transmitted Lunch Visit Coding STANDARD RES Billing Provider: VIDHYA LOMELI MD Date of Service if different f: Jun 11, 2025 Common Visit Codes: [id number] INP/OBS CARE(HIGH) LEI JENSEN RESIDENT Jun 11, 2025 10:36 VIDHYA LOMELI MD Jun 15, 2025 13:58
[2025-06-12] VITALS (7 sets, daily range): BP systolic 91–109; BP diastolic 55–72; PULSE 81–93; RESP 16–18; TEMP 98–99.4; O2SAT 97–100
[2025-06-12 05:48] LABS: Potassium 3.5 mmol/L (3.5-5.1); Sodium 142 mmol/L (136-145)
[2025-06-12 05:49] LABS: Anion Gap 8 (5-15); Carbon Dioxide 24 mmol/L (20-31); Hematocrit 32.7 % (36.0-46.0); Hemoglobin 11.2 g/dL (12.2-16.2); Mean Corpuscular Hemoglobin 29.9 pg (28.0-32.0); Mean Corpuscular Volume 87.4 fL (80.0-100.0); Nucleated Red Blood Cells % 0.0 %
[2025-06-12 05:54] LABS: BUN/Creatinine Ratio 10.5 (10.0-20.0); Glucose 84 mg/dL (74-106)
[2025-06-12 06:05] LABS: Blood Urea Nitrogen 8 mg/dL (9-23); Calcium 8.6 mg/dL (8.7-10.4); Chloride 110 mmol/L (98-107)
[2025-06-12] MEDS: POTASSIUM CHL 20 Meq TABLET PO ONE (09:33)
--- NOTE | 2025-06-12 17:42 | DVHPNRES ---
Progress Note Date Seen: Jun 12, 2025 Resident Creating Document: LIZZIE GONZALEZ RESIDENT Medical Necessity Reason Pt with a Central, PICC or Fol: No Subjective Review of Systems Ms. Desouza is a 44 year old female with PMHx of Nephrolithiasis, ovarian tumor, depression, and anxiety, who presented to [facility] with chief complaint of left flank pain and vomiting. She refers onset of sharp/pressure- like left flank pain on Friday, nonradiating, 8/10 intensity, constant with intermittent periods of exacerbation, associated with nausea, vomiting, subjective fever, and chills. She denies dysuria, hematuria, chest pain, palpitations, shortness of breath, diarrhea, and generalized weakness. Due to progressive worsening of symptoms, she presented to the emergency department for evaluation. On evaluation in the ED, patient was afebrile, tachycardic, tachypneic, normotensive, saturating adequately on room air. Initial labs are significant for leukocytosis with neutrophilia, hypokalemia, elevated total bilirubin, UA significant for UTI. CT abdomen/pelvis shows a 4 mm left UVJ stone resulting in mild hydronephrosis and surrounding left perinephric inflammatory change. Sepsis protocol was initiated, fluids were started, cultures were taken, and patient was started on IV antibiotics. She was admitted for further workup and management. Prior surgical history: Partial hysterectomy, lumpectomy, bilateral tubal ligation Allergies: Patient states her mother told her she has a penicillin allergy, however the patient states she is unsure as she does not recall ever having penicillin Social: Denies previous drug, alcohol, or tobacco use. She states she lives with her and kids and feels safe. Home meds: None PCP: Dr. Bowens Patient seen and evaluated bedside today. Mucosa showed mixed jamal, awaiting for final culture result. Vitals reviewed, BP lower side map>65. Possible discharge tomorrow. Objective vital signs Vital Sign Date Time Temp Pulse Resp B/P (MAP) Pulse Ox O2 Delivery O2 Flow Rate FiO2 06/12/25 16:48 98.3 81 16 109/56 (73) 98 98.3 06/12/25 08:00 Room Air* 0 21 21 Total Intake and Output 06/11/25 06/11/25 06/12/25 15:00 23:00 07:00 Intake Total 850 ml 1050 ml Balance 850 ml 1050 ml medications Current Medications Medications Dose Ordered Sig/Onur Route Start Time Stop Time Status Last Admin Dose Admin Acetaminophen 650 mg Q6HR PO 06/10/25 00:00 06/12/25 11:51 650 MG Ketorolac Tromethamine 15 mg Q6HPRN PRN IV 06/10/25 01:00 06/15/25 00:59 06/11/25 02:23 15 MG Pantoprazole Sodium 40 mg DAILY IV 06/10/25 10:00 06/12/25 09:33 40 MG Ondansetron HCl 4 mg Q6HPRN PRN IV 06/09/25 23:30 Tamsulosin HCl 0.4 mg QPM PO 06/10/25 18:00 06/11/25 17:19 0.4 MG Sodium Chloride 1,000 ml @ 75 mls/hr [id number] IV 06/10/25 11:15 06/12/25 02:33 75 MLS/HR Cefepime HCl 50 ml @ 12.5 mls/hr Q12H IV 06/11/25 03:00 06/12/25 15:36 12.5 MLS/HR Examination General: Patient is AOx4, follows commands HEENT: Normocephalic, atraumatic, normal reactive pupils, EOM intact, pink conjunctiva, pink moist mucous membrane Respiratory/pulmonary: Bilateral chest expansion, no pain on palpation of chest wall, clear lungs bilaterally Cardiovascular: Normal RRR, normal S1 and S2, no murmurs Abdomen: Abdomen nondistended, normal bowel sounds, soft, mild tenderness to palpation and percussion of left flank, no palpable masses. Extremities: No deformities, there is no peripheral edema present at the lower extremities, normal pulses Skin: No rashes or pruritus, erythema or skin breakdown noted Neurological: Intact cranial nerves with no focal neurologic deficits laboratory and microbiology Laboratory Tests 06/12/25 05:03 Test 06/12/25 05:03 Range/Units Serum Glucose 84 74-106 mg/dL Microbiology Date/Time Source Procedure Growth Status 06/09/25 15:50 Voided Urine Urine Culture - Final Escherichia coli Complete 06/09/25 15:46 Blood Blood Culture - Preliminary NO GROWTH AFTER 72 HOURS OF INCUBATION. Resulted Problem List/Assessment/Plan Problem List/Assessment/Plan Sepsis secondary to Pyelonephritis secondary to ureterolithiasis Complicated cystitis Left hydronephrosis Leukocytosis resolved. - CT abdomen/pelvis: 4 mm left UVJ stone resulting in mild hydronephrosis and surrounding left perinephric inflammatory change. - s/p Bactrim, Clindamycin -Urine culture showed growth of E coli -blood culture x2 negative - Cefepime 1g IV q 12 hours - s/p NS 3000 cc IV - NS 75 cc/hr IV maintenance - Urine culture pending - Blood culture pending - Flomax 0.4 mg PO qAM - Toradol 15 mg IV q 6 hours - Acetaminophen 625 mg PO q 6 hours PO Hypokalemia - Monitor potassium levels - Replace as needed Normocytic normochromic anemia No active signs symptoms of bleeding Hypocalcemia History of Ovarian tumor, s/p partial hysterectomy Depression and Anxiety Obesity, BMI 36.3 kg/m2 - I have counseled the patient on healthy lifestyle modifications for 11 minutes. Nutrition: Soft diet DVT prophylaxis: Lovenox GI prophylaxis: Protonix Goals of care discussion. More than 21 minute spent With patient. Full code status. Case discussed with Dr. Lomeli Plan discussed with: Patient, Other (Nurse) Visit Coding STANDARD RES Billing Provider: VIDHYA LOMELI MD Date of Service if different f: Jun 12, 2025 Common Visit Codes: [id number] INP/OBS CARE(HIGH) LIZZIE GONZALEZ RESIDENT Jun 12, 2025 17:42 VIDHYA LOMELI MD Jun 15, 2025 14:28
[2025-06-13 01:00] VITALS: BP 119/70; PULSE 82; RESP 17; TEMP 98.2; O2SAT 97
[2025-06-13 05:00] VITALS: BP 112/54; PULSE 91; RESP 16; TEMP 98.5; O2SAT 97
[2025-06-13 06:49] LABS: Hematocrit 31.3 % (36.0-46.0); Hemoglobin 10.6 g/dL (12.2-16.2); Mean Corpuscular Hemoglobin 29.5 pg (28.0-32.0); Mean Corpuscular Volume 86.8 fL (80.0-100.0); Nucleated Red Blood Cells % 0.0 %
[2025-06-13 07:06] LABS: Anion Gap 9 (5-15); Carbon Dioxide 22 mmol/L (20-31); Chloride 107 mmol/L (98-107); Potassium 3.6 mmol/L (3.5-5.1); Sodium 138 mmol/L (136-145)
[2025-06-13 07:12] LABS: BUN/Creatinine Ratio 12.1 (10.0-20.0); Glucose 86 mg/dL (74-106)
[2025-06-13 07:17] LABS: Blood Urea Nitrogen 8 mg/dL (9-23); Calcium 8.5 mg/dL (8.7-10.4)
[2025-06-13 08:30] VITALS: PULSE 75; O2SAT 97
[2025-06-13 08:52] VITALS: BP 90/44; PULSE 75; RESP 18; TEMP 98.7; O2SAT 97
[2025-06-13] MEDS ORDERED: CEPH250C PO (12:14)
[2025-06-13 13:00] VITALS: BP 96/55; PULSE 86; RESP 18; TEMP 98.1; O2SAT 96
--- NOTE | 2025-06-13 14:21 | MEDREC ---
[facility] ASP Intervention Section I Assessment of apprpriate abx f: UTI (Urine culture shows E. coli susceptible to ceftriaxone, please de-escalate based on culture result) PRERNA TEE [facility] RESIDENT Jun 13, 2025 14:21
--- NOTE | 2025-06-13 17:08 | DVHDSRES ---
Discharge Summary Date of Admission Resident Creating Document: LEI JENSEN RESIDENT Jun 09, 2025 at 22:29 Date of Discharge: Jun 13, 2025 Admitting Diagnosis Sepsis Wounds: No wounds Labs/Diagnostic Data: Laboratory Results Test 06/13/25 05:46 06/10/25 04:47 06/09/25 15:50 06/09/25 15:43 White Blood Count 7.0 10^3/uL (4.4-10.8) Red Blood Count 3.60 10^6/uL (4.0-5.20) Hemoglobin 10.6 g/dL (12.2-16.2) Hematocrit 31.3 % (36.0-46.0) Mean Corpuscular Volume 86.8 fL (80.0-100.0) Mean Corpuscular Hemoglobin 29.5 pg (28.0-32.0) Mean Corpuscular Hemoglobin Concent 34.0 g/dL (32.0-36.0) Red Cell Distribution Width 13.5 % (11.8-14.3) Platelet Count 282 10^3/uL (140-450) Mean Platelet Volume 7.0 fL (6.9-10.8) Neutrophils (%) (Auto) 58.1 % (37.0-80.0) Lymphocytes (%) (Auto) 24.9 % (10.0-50.0) Monocytes (%) (Auto) 15.1 % (0.0-12.0) Eosinophils (%) (Auto) 1.3 % (0.0-7.0) Basophils (%) (Auto) 0.6 % (0.0-2.0) Neutrophils # (Auto) 4.1 10 ^3/uL (1.6-8.6) Lymphocytes # (Auto) 1.7 10 ^3/uL (0.4-5.4) Monocytes # (Auto) 1.1 10 ^3/uL (0-1.3) Eosinophils # (Auto) 0.1 10 ^3/uL (0-0.8) Basophils # (Auto) 0 10 ^3/uL (0-0.2) Nucleated Red Blood Cells 0.0 % Sodium Level 138 mmol/L (136-145) Potassium Level 3.6 mmol/L (3.5-5.1) Chloride Level 107 mmol/L (98-107) Carbon Dioxide Level 22 mmol/L (20-31) Anion Gap 9 (5-15) Blood Urea Nitrogen 8 mg/dL (9-23) Creatinine 0.66 mg/dL (0.550-1.02) Glomerular Filtration Rate Calc 112 mL/min (>90) BUN/Creatinine Ratio 12.1 (10.0-20.0) Serum Glucose 86 mg/dL (74-106) Hemoglobin A1c 5.4 % A1C (<5.7) Calcium Level 8.5 mg/dL (8.7-10.4) Total Bilirubin 1.0 mg/dL (0.2-1.0) Aspartate Amino Transferase (AST) 21 U/L (13-40) Alanine Aminotransferase (ALT) 23 U/L (7-40) Alkaline Phosphatase 113 U/L (46-116) Total Protein 6.5 g/dL (5.7-8.2) Albumin 3.9 g/dL (3.2-4.8) Urine Color Yellow (Yellow) Urine Clarity Turbid (Clear) Urine pH 6.0 (5.0-9.0) Urine Specific [place] 1.020 (1.001-1.035) Urine Protein 1+ (Negative) Urine Ketones 3+ (Negative) Urine Blood 2+ /uL (Negative) Urine Nitrite 1+ (Negative) Urine Bilirubin Negative (Negative) Urine Urobilinogen Normal mg/dL (Negative) Urine Leukocyte Esterase 2+ /uL (Negative) Urine RBC 99 /hpf (0 - 4) Urine Microscopic WBC 74 /HPF (0-5) Urine Squamous Epithelial Cells Few /hpf (<5) Urine Bacteria Few /hpf (None Seen) Urine Mucus Few (None Seen) Urine Glucose Trace mg/dL (Normal) Urine Test Negative (Negative) Urine Opiates Screen Neg (NEGATIVE) Urine Fentanyl Screen Neg (NEGATIVE) Urine Barbiturates Screen Neg (NEGATIVE) Urine Phencyclidine Screen Neg (NEGATIVE) Urine Amphetamines Screen Neg (NEGATIVE) Urine Benzodiazepines Screen Neg (NEGATIVE) Urine Cocaine Screen Neg (NEGATIVE) Urine Cannabinoids Screen Neg (NEGATIVE) Lactic Acid Level 2.0 mmol/L (0.4-2.0) Magnesium Level 1.6 mg/dL (1.6-2.6) Other Laboratory Tests 06/13/25 05:46 Brief Hx & Hospital Course: Ms. Desouza is a 44 year old female with PMHx of Nephrolithiasis, ovarian tumor, depression, and anxiety, who presented to [facility] with chief complaint of left flank pain and vomiting. She refers onset of sharp/pressure- like left flank pain on Friday, nonradiating, 8/10 intensity, constant with intermittent periods of exacerbation, associated with nausea, vomiting, subjective fever, and chills. She denies dysuria, hematuria, chest pain, palpitations, shortness of breath, diarrhea, and generalized weakness. Due to progressive worsening of symptoms, she presented to the emergency department for evaluation. On evaluation in the ED, patient was afebrile, tachycardic, tachypneic, normotensive, saturating adequately on room air. Initial labs are significant for leukocytosis with neutrophilia, hypokalemia, elevated total bilirubin, UA significant for UTI. CT abdomen/pelvis shows a 4 mm left UVJ stone resulting in mild hydronephrosis and surrounding left perinephric inflammatory change. Sepsis protocol was initiated, fluids were started, cultures were taken, and patient was started on IV antibiotics. She was admitted for further workup and management. On evaluation after admission, the patient continued to have febrile spikes. Antibiotics were switched to cefepime. Patient began to improve, would urinate two small stones. Urine culture positive for E. coli resistant to ampicillin, sensitive to all else. On evaluation today, the patient seems well, states that she feels better. Pain has improved, she has slept well, tolerating oral diet, and is ambulating without issue. She is afebrile, normocardic, normotensive, saturating adequately on room air. Follow up labs are stable. She is considered stable for discharge home with prescription for Keflex to continue antibiotic treatment at home. She has been scheduled for a follow up appointment in the discharge clinic and will with also follow up with PCP. Medications, indications, treatment regimens, and potential side effects have been explained. All recommendations, questions, and concerns have been addressed. She states she understands and agrees. Physical Exam General: Patient is AOx4, follows commands HEENT: Normocephalic, atraumatic, normal reactive pupils, EOM intact, pink conjunctiva, pink moist mucous membrane Respiratory/pulmonary: Bilateral chest expansion, no pain on palpation of chest wall, clear lungs bilaterally, vesicular murmurs present in almost all lung almanza, no associated crackles or wheezes. Cardiovascular: Normal RRR, normal S1 and S2, no murmurs Abdomen: Abdomen nondistended, normal bowel sounds, soft, no pain to palpation and percussion of left flank or other abdominal quadrants, no palpable masses. Extremities: No deformities, there is no peripheral edema present at the lower extremities, normal pulses Skin: No rashes or pruritus, presence of multiple pink patches on lateral surface of right calf which the patient states are a fernandez, there is no sacral edema present at this time. Neurological: Intact cranial nerves with no focal neurologic deficits Goals of care and discharge plan discussed with the patient and her at bedside for over 20 minutes. Case discussed with Dr. Lomeli Operations or Procedures CLINICAL HISTORY: stone TECHNIQUE: CT of the abdomen and pelvis was performed without intravenous contrast. This exam was performed according to our departmental dose optimization program. Up-to-date CT equipment and radiation dose reduction techniques are utilized as appropriate. WID: COMPARISON: CT CT AB PEL WO CON-NO ORAL OR IV on DOS: 04/16/23 FINDINGS: Lung bases: Unremarkable. Liver: Unremarkable. Gallbladder and bile ducts: Unremarkable. Spleen: Unremarkable. Pancreas: Unremarkable. Adrenals: Unremarkable. Kidneys and ureters: Punctate right inferior pole renal stone without obstruction. There is mild left hydronephrosis with associated left perinephric and periureteral inflammatory change secondary to a 4 mm left UVJ stone. Bowel: Unremarkable. Fatty infiltration of the terminal ileum and ascending colon. The appendix is normal. Bladder: Unremarkable. Reproductive organs: Unremarkable. Lymph nodes: Unremarkable. Vessels: Unremarkable. Abdominal wall: Unremarkable. Bones: Mild degenerative changes within the thoracolumbar spine.. Other: Unremarkable. IMPRESSION: 4 mm left UVJ stone resulting in mild hydronephrosis and surrounding left perinephric inflammatory change. Nonobstructing punctate right proximal ureteral stone Condition at Discharge: Stable Final Diagnosis/Problems List Sepsis secondary to Acute Pyelonephritis secondary to ureterolithiasis Left hydronephrosis Hypokalemia Morbid obesity, BMI 36.3 kg/m2 History of Ovarian tumor, s/p partial hysterectomy Depression and Anxiety Discharge Disposition: Home Discharge Instruct/Medications Diet: Regular Activity: No Restrictions, As Tolerated Follow Up/Referral: Follow up in [place] clinic Follow up with PCP Medications: per EMR Scheduled Cephalexin (Keflex Capsule), 250 MG PO QID Levofloxacin Hemihydrate (Levofloxacin), 500 MG PO DAILY Sulfamethoxazole W/Trimethopri (Bactrim Ds Tablet), 1 TAB PO BID Sumatriptan Succinate (Imitrex), 1 TAB PO UD Tamsulosin Hcl (Flomax), 0.4 MG PO QPM Scheduled PRN Acetaminophen (Acetaminophen), 650 MG PO Q6HP PRN Ibuprofen Micronized (Motrin Tablet), 600 MG PO TID PRN Ondansetron (Zofran), 4 MG PO Q6HPRN PRN Oxycodone W/ Acetaminophen (Percocet 5/325MG), 1 TAB PO Q6HPRN PRN Discharge Statement: "Patient was advised to return to the ER or call 911 if any headaches, dizziness, shortness of breath, chest pain, abdominal pain, bleeding, fevers, or worsening of medical condition. Patient was counseled about treatment plan, medications, possible side effects, patientverbalized understanding. All questions were answered to the best of my ability. This discharge took greater then 30 minutes in planning, reviewing documentation, counseling the patient, and discussing with other team members." ASSESSMENT ASSESSMENT Assessment Sepsis due to UTI Visit Coding STANDARD RES Billing Provider: VIDHYA LOMELI MD Date of Service if different f: Jun 13, 2025 Common Visit Codes: 76722-YOP/OBS DISCH DAY >30min LEI JENSEN RESIDENT Jun 13, 2025 17:08 VIDHYA LOMELI MD Jun 15, 2025 14:38
== END 2025-06-13 14:10 | disposition home or self-care (01) | DRG 720 ==
LOC: ER 15:26 → OVERFLOW 22:29 → WEST WING 23:53
PROVIDERS: ADMIT Student in an Organized Health Care Education/Training Program; ATTEND Student in an Organized Health Care Education/Training Program
DX: A41.9 Sepsis, unspecified organism (principal); N13.6 Pyonephrosis; E66.01 Morbid (severe) obesity due to excess calories; F32.A Depression, unspecified; E87.6 Hypokalemia; F41.9 Anxiety disorder, unspecified; Z68.36 Body mass index [BMI] 36.0-36.9, adult; Z88.0 Allergy status to penicillin; Z79.1 Long term (current) use of non-steroidal anti-inflammatories (NSAID); Z79.899 Other long term (current) drug therapy; Z90.710 Acquired absence of both cervix and uterus
CPT/HCPCS: 36415; 74176; 80048; 80053; 80307; 81001; 81025; 83036; 83605; 83735; 85025; 87040; 87086; 87088; 87186; 96365; 99291; 99292; G0378; J1885; J1956; J2405; J2470; J3490